=== PATIENT | female | born 1950 | race Caucasian/White ===

== ENCOUNTER 2022-06-14 00:09 | Inpatient (IN) | payer OTHER ==
[~2022-06-14] VITALS: Ht 152.4 cm; Wt 63.6 kg
[2022-06-14 03:43] LABS: Hematocrit 23.1 % (33.0-51.0); Hemoglobin 8.1 g/dL (11.5-16.0); Mean Corpuscular HGB 30.7 pg (26.0-34.0); Mean Corpuscular HGB Conc 35.1 g/dL (31.5-36.5); Mean Corpuscular Volume 88 fL (80-100); Mean Platelet Volume 10.7 fL (9.1-12.4); Platelet Count 147 K/mm3 (150-400); RDW Coefficient Variation 17.3 % (11.7-14.2); RDW Standard Deviation 44.4 fL (35.1-46.3); Red Blood Cell Count 2.64 M/mm3 (3.80-5.20); White Blood Cell Count 1.49 K/mm3 (4.00-11.30)
[2022-06-14 04:09] LABS: Magnesium, Blood 1.8 mg/dL (1.6-2.4)
[2022-06-14 04:10] LABS: BAND PERCENT MAN 3 % (0-8); BASOPHILS PERCENT MAN 0 % (0-2); EOSINOPHILS PERCENT MAN 0 % (0-6); LYMPHOCYTES PERCENT MAN 7 % (21-46); MONOCYTES ABSOLUTE MAN 0.05 K/mm3 (0.16-1.47); MONOCYTES PERCENT MAN 4 % (4-13); NEUTROPHILS ABSOLUTE MAN 1.32 K/mm3 (1.96-9.15); SEG NEUTROPHILS PERCENT MAN 86 % (41-73); TOTAL CELLS COUNTED 100
[2022-06-14 04:14] LABS: Albumin, Blood 2.2 g/dL (3.4-5.0); Albumin/Globulin Ratio 0.5 (0.8-1.8); Bilirubin, Total 0.5 mg/dL (0.1-1.0); Bun/Creatinine Ratio 24.8 (12.0-20.0); Calcium, Blood 7.7 mg/dL (8.5-10.1); Creatinine, Blood 0.85 mg/dL (0.40-1.00); Globulin, Blood 4.1 g/dL (2.2-4.0); Thyroid Stimulating Hormone 0.75 uIU/mL (0.360-4.800); Total Protein, Blood 6.3 g/dL (6.4-8.2)
[2022-06-14 05:00] LABS: Source, Urine Clean Catch
[2022-06-14 05:10] LABS: Appearance, Urine Cloudy (Clear); Bilirubin, Urine Neg (Neg); Blood, Urine 2+ (Neg); Color, Urine Yellow (P-Yellow); Glucose Qualitative, Urine Neg (Neg); Ketones, Urine Neg (Neg); Leukocyte Esterase, Urine Neg (Neg); Nitrite, Urine Neg (Neg); Protein, Urine 2+ (Neg); Specific Gravity, Urine 1.015 (1.003-1.022); Urobilinogen, Urine NORM (Normal)
[2022-06-14 05:32] LABS: Red Blood Cells, Urine 0-2 /hpf (0-2); White Blood Cells, Urine 0-2 /hpf (0-5)
[2022-06-14 05:33] LABS: Amorphous Light (0-Heavy); Bacteria Mod /hpf; Granular Casts 0-2 /lpf (0); Squamous Epithelial Cells Few /hpf (Few)
[2022-06-14] MEDS ORDERED: ACET500 PO (06:25)
[2022-06-14] MEDS ORDERED: ALBU90OI INH (06:27)
[2022-06-14] MEDS ORDERED: Cyclobenzaprine5 MG PO (06:28)
[2022-06-14] MEDS ORDERED: DOCU100 PO (06:30)
[2022-06-14] MEDS ORDERED: DICY20 PO (06:30)
[2022-06-14] MEDS ORDERED: HYDCHL25 PO (06:32)
[2022-06-14] MEDS ORDERED: NITR.4SL SL (06:32)
[2022-06-14] MEDS ORDERED: OXYC5 PO (06:33)
[2022-06-14] MEDS ORDERED: PREG25 PO (06:34)
[2022-06-14] MEDS ORDERED: ALCIS59.15 ML TOP (06:34)
--- NOTE | 2022-06-14 06:51 | NUR ---
SHIFT SUMMARY: Patient arrived to unit via EMS transport at 0235 on 0.02mcg/kg/min of levophed. Changed her to 2mcg/min of levophed after performing dose calc. As of 0600- she is on 4mcg/min of levophed to maintain MAP> 65. Mild tachycardia in the 110s with frequent PVCs. K was 3.0 this AM- received order for 40meq IV KCL. Placed on 2L NC to maintain sat above 92%. She has a cough which she states is chronic. Voided using the bedpan and UA sent. Urine was dark and cloudy, malodorous. She had a liquid bowel movement this morning as well which she states is normal due to her chemo, but we may consider sending for C-diff testing if she continues to have diarrhea due to unknown infection source. She is alert, oriented and appropriate. Using call light appropriately. Denies pain or discomfort.
--- NOTE | 2022-06-14 07:36 | NUR ---
ASSUMED CARE: PT RESTING QUIETLY IN BED AT THIS TIME. SINUS TACH AT 104 WITH PVCS. LEVOPHED GTT AT 4MCG/KG. ON RA. NO ACUTE NEEDS AT THIS TIME.
--- NOTE | 2022-06-14 08:59 | NUR ---
CALL TO DR BURNETT FOR PT'S HR IN 140S. PASSIVE LEG RAISE DID NOT PRESENT DRASTIC CHANGE. DR BURNETT TO BESDIDE ORDERING EKG THAT SHOWED SVT. INSTRUCTED TO GIVE ADENOSINE BUT THEN PT CONVERTED BACK TO SINUS TACH SPONTANEOUSLY. CANCELED ADENOSINE AND INSTRUCTED FOR IV MAG. IMPORT AND EXPORT CLERK AWARE
[2022-06-14 10:04] LABS: Bun/Creatinine Ratio 21.7 (12.0-20.0); Calcium, Blood 7.4 mg/dL (8.5-10.1); Creatinine, Blood 0.78 mg/dL (0.40-1.00); Magnesium, Blood 1.9 mg/dL (1.6-2.4); Potassium, Blood 3.5 mmol/L (3.5-5.5)
--- NOTE | 2022-06-14 18:29 | NUR ---
SHIFT SUMMARY: PT HAS REMAINED ALERT AND ORIENTED T/O SHIFT. LEVOPHED AT 4MCG/KG THROUGHOUT SHIFT. VSS WITH THIS. 0-2L NC FOR COMFORT. NONPRODUCTIVE COUGH. FAMILY CAME TO VISIT THIS SHIFT. NO ACUTE NEEDS OR CONCERNS AT THIS TIME.
[2022-06-15 03:40] LABS: Hematocrit 22.1 % (33.0-51.0); Hemoglobin 7.9 g/dL (11.5-16.0); Mean Corpuscular HGB 31.1 pg (26.0-34.0); Mean Corpuscular HGB Conc 35.7 g/dL (31.5-36.5); Mean Corpuscular Volume 87 fL (80-100); Mean Platelet Volume 10.6 fL (9.1-12.4); Platelet Count 181 K/mm3 (150-400); RDW Coefficient Variation 17.2 % (11.7-14.2); Red Blood Cell Count 2.54 M/mm3 (3.80-5.20)
[2022-06-15 04:03] LABS: Albumin, Blood 2.1 g/dL (3.4-5.0); Albumin/Globulin Ratio 0.5 (0.8-1.8); Bilirubin, Total 0.3 mg/dL (0.1-1.0); Bun/Creatinine Ratio 32.2 (12.0-20.0); Calcium, Blood 8.2 mg/dL (8.5-10.1); Creatinine, Blood 0.62 mg/dL (0.40-1.00); Globulin, Blood 4.4 g/dL (2.2-4.0); Magnesium, Blood 2.3 mg/dL (1.6-2.4); Potassium, Blood 3.7 mmol/L (3.5-5.5); Total Protein, Blood 6.5 g/dL (6.4-8.2)
[2022-06-15 04:39] LABS: BAND PERCENT MAN 3 % (0-8); BASOPHILS PERCENT MAN 0 % (0-2); EOSINOPHILS PERCENT MAN 0 % (0-6); LYMPHOCYTES % ATYPICAL MANUAL 1 % (0-0); LYMPHOCYTES ABSOLUTE MAN 0.38 K/mm3 (0.84-5.20); LYMPHOCYTES PERCENT MAN 19 % (21-46); MONOCYTES PERCENT MAN 11 % (4-13); NEUTROPHILS ABSOLUTE MAN 1.31 K/mm3 (1.96-9.15); SEG NEUTROPHILS PERCENT MAN 66 % (41-73); TOTAL CELLS COUNTED 100
--- NOTE | 2022-06-15 06:02 | NUR ---
SHIFT SUMMARY: At start of shift, she was on 4mcg/min of levophed with MAPs in the 80s. Weaned down to 3mcg/min at 2030. Attempted to wean down to 2, but her MAP dropped below 65 so I turned it back up to 3, and then eventually up to 4mcg/min after she fell asleep. As of 0600, she is still on 4mcg/min with MAP at exactly 65. She slept intermittently tonight. Denies pain/discomfort. She has ambulated to the bathroom several times as a stand-by assist. Now sitting up in the chair.
--- NOTE | 2022-06-15 07:22 | NUR ---
Assumed care. Report received from meet HOPKINS. Pt resting in chair ATT, on room air, levophed infusing at 4 mcg/min. Pt alert, denies needs. VS within normal ranges, will continue to monitor.
--- NOTE | 2022-06-15 07:31 | NUR ---
Assumed care. Report received from meet HOPKINS. Pt up in chair, alert, on RA. Levophed infusing at 4 mcg/min. Pt denies needs ATT. VS within normal ranges. Will continue to monitor.
--- NOTE | 2022-06-15 16:40 | NUR ---
Discharged patient at 1620. All personal belongings sent home with patient. RX faxed to pharmacy. Pt ambulatory, walked out of unit with her daughter to car.
== END 2022-06-15 18:12 | disposition home or self-care (01) | DRG 314 ==
LOC: ICUW 00:09
PROVIDERS: Internal Medicine; ADMIT Student in an Organized Health Care Education/Training Program
PROC: 3E033XZ Introduction of Vasopressor into Peripheral Vein, Percutaneous Approach (ICD-10-PCS; principal; 2022-06-14)
DX: I95.9 Hypotension, unspecified (principal); D61.810 Antineoplastic chemotherapy induced pancytopenia; E22.2 Syndrome of inappropriate secretion of antidiuretic hormone; C34.11 Malignant neoplasm of upper lobe, right bronchus or lung; E86.0 Dehydration; R82.71 Bacteriuria; E11.65 Type 2 diabetes mellitus with hyperglycemia; E88.09 Other disorders of plasma-protein metabolism, not elsewhere classified; T45.1X5A Adverse effect of antineoplastic and immunosuppressive drugs, initial encounter; J44.9 Chronic obstructive pulmonary disease, unspecified; D70.1 Agranulocytosis secondary to cancer chemotherapy; M19.90 Unspecified osteoarthritis, unspecified site; Z98.890 Other specified postprocedural states; Z87.891 Personal history of nicotine dependence; Z88.8 Allergy status to other drugs, medicaments and biological substances; Z88.5 Allergy status to narcotic agent; Z88.2 Allergy status to sulfonamides
CPT/HCPCS: 36415; 71045; 80048; 80053; 80400; 81001; 82533; 83605; 83735; 84145; 84443; 85025; 93005; 93010; 94640; 94664; 94762; A9270; J0696; J0834; J1100; J1642; J1650; J3475; J3480; J7050; J7060